=== PATIENT | male | born 1980 | race Caucasian/White ===

== ENCOUNTER 2023-01-09 15:13 | Inpatient (IN) ==
[2023-01-09 17:48] LABS: ABS Eosinophils 0.1 10^3/uL (0.0-0.5); ABS Lymphocytes 2.4 10^3/uL (1.0-4.8); ABS Monocytes 0.9 10^3/uL (0.0-1.1); Eosinophil % 1.5 %; Hematocrit 44.5 % (38-53); Hemoglobin 15.4 g/dL (13.2-16.3); Lymphocyte % 37.1 %; Mean Corpuscular Hemoglobin 31.6 pg (27-33); Mean Corpuscular Hgb Conc 34.6 g/dL (31-36); Mean Corpuscular Volume 91.5 fL (80-97); Mean Platelet Volume 9.2 fL (7.5-11.2); Nucleated Red Blood Cells % 0.1 /100 WBC (0.0-0.4); Platelet Count 227 10^3/uL (150-450); Red Blood Count 4.86 10^6/uL (4.06-5.63); Red Cell Distribution Width 13.3 % (12-17); White Blood Count 6.5 10^3/uL (3.6-10.2)
[2023-01-09 18:21] LABS: ALT 27 U/L (7-52); AST 25 U/L (13-39); Albumin 4.9 g/dL (3.2-5.2); Albumin/Globulin Ratio 2.2 (1-3); Alkaline Phosphatase 52 U/L (35-149); Anion Gap 11 mmol/L (2-16); Blood Urea Nitrogen 10 mg/dL (6-24); CO2 Carbon Dioxide 26 mmol/L (22-32); Calcium 9.6 mg/dL (8.6-10.3); Chloride 101 mmol/L (101-111); Creatinine, Serum 0.81 mg/dL (0.67-1.17); Globulin 2.2 g/dL (2-4); Glucose 79 mg/dL (70-100); Potassium 3.8 mmol/L (3.5-5.0); Sodium 138 mmol/L (135-145); Total Protein 7.1 g/dL (6.4-8.9); eGFR CKD-EPI 114.3 (>60)
[2023-01-09 18:22] LABS: Acetaminophen < 15 mcg/mL; Alcohol, S < 13 mg/dL (<13); Salicylate < 2.50 mg/dL (<30); TSH Ultra Thyroid Stim Horm 0.87 mcIU/mL (0.34-5.60)
[2023-01-09] MEDS ORDERED: Al Hydrox/Mg Hydrox/Simet LIQ 30 ML UDC PO PRN (19:29)
[2023-01-09] MEDS ORDERED: LORazepam 1 MG TAB PER WAM PROTOCOL PO SCH (20:00)
[2023-01-10] MEDS: Vitamin THERAPEUTIC TAB PO SCH (11:23)
[2023-01-11] MEDS: Vitamin THERAPEUTIC TAB PO SCH (10:31)
[2023-01-12] MEDS: Vitamin THERAPEUTIC TAB PO SCH (10:50)
[2023-01-13] MEDS: Vitamin THERAPEUTIC TAB PO SCH (09:49)
[2023-01-14 07:48] LABS: HDL Cholesterol 69.9 mg/dL
[2023-01-14] MEDS: Vitamin THERAPEUTIC TAB PO SCH (08:51)
[2023-01-14 10:11] VITALS: BP 115/72
== END 2023-01-14 13:40 | disposition home or self-care (01) | DRG 880 ==
LOC: ED 15:13 → EDHOLD 17:20 → BSU 17:49
PROVIDERS: ADMIT Psychiatry & Neurology Psychiatry; ATTEND Psychiatry & Neurology Psychiatry